=== PATIENT | female | born 1965 | race Caucasian/White ===

== ENCOUNTER → 2017-02-23 | Outpatient (CLI) | payer OTHER ==
[~2017-02-23] MED LIST: ALLEGRA180 MG PO; BACITRACIN30 GM TOP; GLUCOSAMINE & C1 CAP PO; HCTZ PO; MULTIVITAMIN PO; NASONEX17 GM; PRINIVIL20 M1 PO; PROZAC PO; YAZ PO; [UNRECOGNIZED DRUG - OTHER] PO
--- NOTE | ~2017-02-23 | MY11 ---
[facility] A Service of [facility] RADIOLOGY TEXT RESULTS PATIENT: BLAZE CONWAY LOCATION: [facility] : 65 UNIT #: [id number] AGE: [address]: Young Hunt MD SEX: F ORDER DR: [id number] [facility] [address] [place], [place] [address] [id number] O MR#: [id number] Acc #: [id number] NAME: BLAZE CONWAY : 1965 SEX: F STUDY DATE/TIME: 02/23/2017 14:55 UNIT: [facility] ROOM: STUDY DESCRIPTION: MY Mammogram Screening Dig Km Attending Physician: Young Hunt M.D. Ordering Physician: Young Hunt M.D. Primary Care Physician: Young Hunt M.D. MEDICAL IMAGING REPORT This report is preliminary unless electronic signature is present EXAM Bilateral digital screening mammogram with CAD 02/23/2017 INDICATIONS 51-year-old female for routine screening. No reported problems and no personal or family history of breast cancer. No surgeries. TECHNIQUE CC and MLO views of the breasts were obtained and compared with a FDA-approved CAD device. COMPARISON STUDIES 02/04/2016, 08/02/2015, 01/21/2015, 12/25/2014. FINDINGS Breast parenchyma is predominately fatty replaced. The pattern is unchanged. There is no new dominant nodule or mass in either breast. No new suspicious clustered microcalcifications. There are benign calcifications in both breasts. Previously documented intramammary node in the upper outer left breast is unchanged. Smaller rounded density in the central left breast on the CC projection probably represents a small faintly calcified oil cyst, also unchanged dating back to 2014. IMPRESSION 1. Benign screening mammogram, 1 year followup recommended. BIRADS: 2 Benign Finding. Patients over the age of 40 are entered into a reminder system with target due date for the next mammogram. A result letter will also be sent to the patient. [facility] A Service of [facility] RADIOLOGY TEXT RESULTS PATIENT: BLAZE CONWAY LOCATION: [facility] : 65 UNIT #: [id number] AGE: [address]: Young Hunt MD SEX: F ORDER DR: Dictated by... Walter Dillon M.D. THIS IS AN ELECTRONICALLY VERIFIED REPORT Walter Dillon M.D. at 02/26/2017 7:31 AM FRANCI/trisetn TD: 02/23/2017 21:07 JOB #: [id number] MEDICAL IMAGING REPORT Page 1 of 1 COPY
== END | disposition home or self-care (01) ==
LOC: CWCC 14:29
DX: Z12.31 Encounter for screening mammogram for malignant neoplasm of breast (principal)
CPT/HCPCS: G0202